=== PATIENT | female | born 1935 | race Caucasian/White ===

== ENCOUNTER 2017-08-31 14:20 | Observation (INO) | payer OTHER ==
[~2017-08-31] VITALS: Ht 162.6 cm; Wt 63.3 kg
[2017-08-31 15:17] LABS: HEMATOCRIT 38.5 % (36.0-46.0); HEMOGLOBIN 12.6 G/DL (11.9-15.5); MCH 27.3 PG (29.0-34.0); MCHC 32.7 G/DL (30.0-36.0); MCV 83.5 FL (83-99); PLATELET COUNT 225 K/uL (156-360); RBC DIS.WIDTH-CV 17.2 % (11.8-14.6); RBC DIS.WIDTH-SD 51.8 % (39-53); RED BLOOD COUNT 4.61 M/uL (3.80-5.20); WHITE BLOOD COUNT 9.2 K/uL (4.1-10.2)
[2017-08-31 15:29] LABS: CHLORIDE 105 mEq/L (99-109); POTASSIUM 4.5 mEq/L (3.7-5.4); SODIUM 142 mEq/L (136-147)
[2017-08-31 15:30] LABS: GLUCOSE 89 mg/dL (70-99)
[2017-08-31 15:34] LABS: CREATININE 0.7 mg/dL (0.6-1.3); GFR ESTIMATE (CALCULATED) > 59 mL/min/
[2017-08-31 15:35] LABS: UREA NITROGEN (BUN) 23 mg/dL (9-23)
[2017-08-31 15:43] LABS: TROP-I INTERPRETATION NEGATIVE; TROPONIN-I < 0.01 ng/mL (0.0-0.30)
[2017-08-31] MEDS ORDERED: LATANOPROST2.5 ML BOTH EYES (18:20)
[2017-08-31] MEDS ORDERED: ALPRAZOLAM0.25 M2 PO (18:23)
[2017-08-31] MEDS ORDERED: COMBIGAN O20 DROP/5 BOTH EYES (18:28)
[2017-08-31] MEDS ORDERED: ESZOPICLONE1 MG PO (18:28)
[2017-08-31] MEDS ORDERED: LEVOTHYROXINE125 MCG PO (18:28)
[2017-08-31] MEDS ORDERED: ROSUVASTATIN CA10 MG PO (18:29)
[2017-08-31] MEDS ORDERED: RANITIDINE HCL150 MG PO (18:29)
[2017-08-31] MEDS ORDERED: OLOPATADINE HCL5 ML BOTH EYES (18:31)
[2017-08-31] MEDS ORDERED: POLYETHYLENE G255 GM PO (18:31)
[2017-08-31] MEDS ORDERED: VITAMIN B-12500 MC3 PO (18:33)
[2017-08-31] MEDS ORDERED: CO Q-10200 MG PO (18:35)
[2017-08-31] MEDS ORDERED: FISH OIL 1,0001 EAC7 PO (18:36)
[2017-08-31] MEDS ORDERED: VITAMIN E400 UNIT PO (18:38)
[2017-08-31 18:39] LABS: APPEARANCE CLEAR ((CLEAR)); BILIRUBIN NEGATIVE; BLOOD NEGATIVE; COLOR STRAW ((YELLOW)); GLUCOSE (STRIP) NEGATIVE; KETONES 5; LEUKOCYTES NEGATIVE; NITRITE NEGATIVE; PROTEIN (STRIP) NEGATIVE; UCUL ADDED? NO; UROBILINOGEN 0.2 MG/DL (0.2-1.0)
[2017-08-31] MEDS ORDERED: CHILDREN'S ASPI81 M1 PO (18:40)
[2017-08-31] MEDS ORDERED: PRESERVISION T1 EACH PO (18:41)
[2017-08-31] MEDS ORDERED: TURMERIC500 M2 PO (18:42)
[2017-08-31] MEDS ORDERED: VITAMIN C60 MG PO (18:45)
[2017-08-31] MEDS ORDERED: LUTEIN20 MG PO (18:46)
[2017-08-31] MEDS ORDERED: IRON325 M1 PO (18:47)
[2017-08-31 21:27] LABS: HDL CHOLESTEROL 50 MG/DL (Desirable>=50); LDL CHOLESTEROL 58 mg/dL (Desirable<100); NON-HDL CHOLESTEROL 97 mg/dL (Desirable<160); TOTAL CHOLESTEROL 147 mg/dL (Desirable<200); TRIGLYCERIDES 195 MG/DL (Normal: <150)
[2017-08-31 21:50] VITALS: BP 165/70
[2017-09-01 08:32] LABS: THYROTROPIN (TSH) 0.26 MIU/L (0.4-5.5)
[2017-09-01 09:30] LABS: HEMOGLOBIN A1c (GLYCOHEMOGLOB) 6.4 % (Below 5.7)
[2017-09-01 10:14] VITALS: BP 116/61
[2017-09-01] MEDS ORDERED: LIPITOR20 MG PO (11:35)
== END 2017-09-01 15:11 | disposition home or self-care (01) ==
LOC: EME 14:20 → EDOF 20:35 → ENRESERV 20:37 → 5WEST 21:35 → ENPENDDIS 09-01 14:06 → 5WEST 09-01 15:11
PROVIDERS: Physician Assistant
DX: G45.9 Transient cerebral ischemic attack, unspecified (principal); I65.23 Occlusion and stenosis of bilateral carotid arteries; Q28.3 Other malformations of cerebral vessels; R73.03 Prediabetes; E03.9 Hypothyroidism, unspecified; E78.5 Hyperlipidemia, unspecified; D50.9 Iron deficiency anemia, unspecified; K21.9 Gastro-esophageal reflux disease without esophagitis; Z85.3 Personal history of malignant neoplasm of breast; R01.1 Cardiac murmur, unspecified; H40.9 Unspecified glaucoma; Z90.49 Acquired absence of other specified parts of digestive tract; Z87.891 Personal history of nicotine dependence; Z82.49 Family history of ischemic heart disease and other diseases of the circulatory system; Z82.0 Family history of epilepsy and other diseases of the nervous system
CPT/HCPCS: 70450; 70551; 80048; 80061; 81003; 83036; 84443; 84484; 85027; 93005; 93880; 99281; 99284; G0378; J1644